=== PATIENT | female | born 2000 | race Asian ===

== ENCOUNTER 2019-08-30 06:50 | Emergency (ER) | payer OTHER ==
--- NOTE | 2019-08-30 07:40 | ED ---
Abdominal Pain/Female - HPI Summary HPI Summary: 18 year old F presenting to [facility] accompanied by female first sampler complains of left abd pain since a month ago, worse since two days ago. Pt reports emesis and chills since yesterday, constipation, more frequent urination, and 15 lbs of weight loss since last month. Patient states that when she is able to have a bowel movement she produces small amounts of diarrhea. Denies other urinary Sx and any noticeable hair loss. Hx of GERD is noted. Patient had an endoscopy in [place] last month which is reported to have been normal with exception of GERD. She also states that she was bitten by a cat in [facility] for which she is currently on rabies medication. SHx of no smoking, no alcohol, and no drugs. The patient rates the pain 5/10 in severity. Symptoms aggravated by nothing. Symptoms alleviated by nothing. Use of Miralax had no benefit. Medications reviewed. Allergies noted. - History of Current Complaint Chief Complaint: EDAbdPain Stated Complaint: ABD PAIN PER PT Time Seen by Provider: 08/30/19 07:08 Hx Obtained From: Patient Hx Last Menstrual Period: 08/22/2019 ?: No Onset/Duration: Lasting Weeks, Still Present Timing: Constant Severity Currently: Moderate Pain Intensity: 5 Pain Scale Used: 0-10 Numeric Location: Discrete At: LUQ, Discrete At: LLQ Aggravating Factor(s): Nothing Alleviating Factor(s): Nothing - Marilax doesn't help Associated Signs and Symptoms: Positive: Constipation, Urinary Symptoms - increased frequency of urination, no other Sx, Nausea, Vomiting, Diarrhea. Negative: Fever Allergies/Adverse Reactions: Allergies Allergy/AdvReac Type Severity Reaction Status Date / Time No Known Allergies Allergy Verified 08/30/19 06:52 Home Medications: Home Medications Esomeprazole(NF) [NEXium(NF)] 20 mg PO BID 08/30/19 [History Confirmed 08/30/19] PMH/Surg Hx/FS Hx/Imm Hx Previously Healthy: Yes GI History: Reports: Hx Gastroesophageal Reflux Disease Sensory History: Denies: Hx Legally Blind - Surgical History Surgical History: None Infectious Disease History: No Infectious Disease History: Reports: Traveled Outside the [place] in Last 30 Days - [place] and [facility] [place][note 3] - Family History Known Family History: Positive: Cardiac Disease, Hypertension - Social History Alcohol Use: None Substance Use Type: Reports: None Smoking Status (MU): Never Smoked Tobacco Review of Systems Constitutional: Negative - no noticeable hair loss Positive: Other - 15 lbs lost since last month . Negative: Fever Positive: Abdominal Pain - Left side for 2 months, Vomiting - 3-4 times since yesterday 08/29/2019, Diarrhea, Nausea - not present currently , Other - Constipation Positive: frequency - increased frequency of urination All Other Systems Reviewed And Are Negative: Yes Physical Exam - Summary Physical Exam Summary: Constitutional: Well-developed, Well-nourished, Alert. (-) Distressed Skin: Warm, Dry HENT: Normocephalic; Atraumatic Eyes: Conjunctiva normal Neck: Musculoskeletal ROM normal neck. (-) JVD, (-) Stridor, (-) Tracheal deviation Cardio: Rhythm regular, rate normal, Heart sounds normal; Intact distal pulses; Radial pulses are 2+ and symmetric. (-) Murmur Pulmonary/Chest wall: Effort normal. (-) Respiratory distress, (-) Wheezes, (-) Rales Abd: mild LLQ tenderness, no rebound or guarding, no distension Musculoskeletal: (-) Edema Lymph: (-) Cervical adenopathy Neuro: Alert, Oriented x3 Psych: Mood and affect Normal Triage Information Reviewed: Yes Vital Signs On Initial Exam: Initial Vitals Temp Pulse Resp BP Pulse Ox 97.9 F 88 18 121/84 98 08/30/19 06:50 08/30/19 06:50 08/30/19 06:50 08/30/19 06:50 08/30/19 06:50 Vital Signs Reviewed: Yes Procedures - Sedation Patient Received Moderate/Deep Sedation with Procedure: No Diagnostics - Vital Signs Vital Signs Temp Pulse Resp BP Pulse Ox 08/30/19 06:50 97.9 F 88 18 121/84 98 - Laboratory Result Diagrams: 08/30/19 07:56 08/30/19 07:56 Lab Statement: Any lab studies that have been ordered have been reviewed, and results considered in the medical decision making process. - Radiology ABDOMINAL X-RAY Radiology Interpretation Completed By: Radiologist Summary of Radiographic Findings: IMPRESSION: NO EVIDENCE FOR OBSTRUCTION. ED Physician has reviewed this report. Re-Evaluation - Re-Evaluation 9:03 Re-Evaluation Time: 09:03 Change: Improved Comment: Pt reports feeling better after Bentyl. Abdominal Pain Fem Course/Dx - Course Course Of Treatment: Patient is here with chronic left lower quadrant pain for the past month. Patient's symptoms to get worse 2 days ago. Patient states she feels constipated when she goes has small episodes of diarrhea. Patient has some nausea with this as well which she describes as reflux. Patient had an EGD done in [place] the past couple of weeks which was negative for any acute illness. Patient isn't taking as reflux medicine with little relief. Patient was tender on exam but only in her left lower quadrant. Patient had an x-ray which showed no obvious stool Birden. Patient blood or performed which is grossly unremarkable. Patient was given Bentyl with near resolution of her symptoms. Given patient's symptomology, timeframe, and improvement with medication, CT scan was not performed. I do not believe this was ovarian in nature as her pain was more superior than her ovary and she had GI symptoms to company. - Diagnoses Provider Diagnoses: LLQ pain Discharge ED - Sign-Out/Discharge Documenting (check all that apply): Patient Departure - discharge - Discharge Plan Condition: Stable Disposition: HOME Prescriptions: Dicyclomine CAP* [Bentyl CAP*] 10 mg PO TID PRN #20 cap PRN Reason: abdominal cramping Patient Education Materials: Abdominal Pain (ED) Referrals: [facility] - Valdemar CORREA [Primary Care Provider] - Carla Vera MD [Medical Doctor] - Additional Instructions: Follow up with within the next 3 days. Continue medications at home and start new medications for cramping. Come back for severe pain, unexpected vaginal bleeding, or any other concerning symptoms. - Billing Disposition and Condition Condition: STABLE Disposition: Home - Attestation Statements Document Initiated by Kun: Yes Documenting Scribe: NOEMI WATSON Provider For Whom Kun is Documenting (Include Credential): TAMIKA DAUGHERTY MD Scribe Attestation: NOEMI Khan scribed for TAMIKA DAUGHERTY MD on 08/31/19 at 0720. Scribe Documentation Reviewed: Yes Provider Attestation: The documentation as recorded by the NOEMI berman accurately reflects the service I personally performed and the decisions made by me, TAMIKA DAUGHERTY MD Status of Scribe Document: Viewed
[2019-08-30 08:01] LABS: ABS Lymphocytes 1.9 10^3/ul (1.0-4.8); ABS Monocytes 0.3 10^3/ul (0-0.8); ABS Neutrophils 4.6 10^3/ul (1.5-7.7); Eosinophil % 0.4 %; Hematocrit 37 % (35-47); Hemoglobin 12.7 g/dL (12.0-16.0); Lymphocyte % 27.2 %; Mean Corpuscular HGB Conc 34 g/dL (31-36); Mean Corpuscular Hemoglobin 30 pg (27-31); Mean Corpuscular Volume 87 fL (80-97); Mean Platelet Volume 9.8 fL (7.4-10.4); Platelet Count 265 10^3/uL (150-450); Red Blood Count 4.25 10^6 /uL (3.70-4.87); Red Cell Distribution Width 13 % (10-15); White Blood Count 6.8 10^3/uL (3.5-10.8)
[2019-08-30] MEDS ORDERED: Dicyclomine CAP* 10 MG PO ONE (08:10)
[2019-08-30 08:21] LABS: ALT 14 U/L (7-52); AST 14 U/L (13-39); Albumin 4.6 g/dL (3.2-5.2); Albumin/Globulin Ratio 1.4 (1-3); Alkaline Phosphatase 42 U/L (34-104); Anion Gap 7 mmol/L (2-11); BUN/Creatinine Ratio 15.4 (8-20); Blood Urea Nitrogen 12 mg/dL (6-24); CO2 Carbon Dioxide 26 mmol/L (22-32); Calcium 9.8 mg/dL (8.6-10.3); Chloride 106 mmol/L (101-111); EGFR African American 113.9 (>60); EGFR Non-African American 94.2 (>60); Globulin 3.3 g/dL (2-4); Glucose 96 mg/dL (70-100); Potassium 4.2 mmol/L (3.5-5.0); Sodium 139 mmol/L (135-145); Total Protein 7.9 g/dL (6.4-8.9)
[2019-08-30 08:27] LABS: HCG Pregnancy < 0.60 mIU/mL
[2019-08-30 09:04] LABS: Free T4 1.08 ng/dL (0.61-1.12)
[2019-08-30 10:14] VITALS: BP 121/86
== END 2019-08-30 10:14 | disposition home or self-care (01) ==
LOC: ED 06:50
DX: R10.32 Left lower quadrant pain (principal); R35.0 Frequency of micturition; R11.10 Vomiting, unspecified; R68.83 Chills (without fever); R63.4 Abnormal weight loss; K21.9 Gastro-esophageal reflux disease without esophagitis
CPT/HCPCS: 36415; 74018; 80053; 84439; 84443; 84702; 85025; 99282; A9270-GY

== ENCOUNTER 2019-09-09 12:07 | Emergency (ER) | payer OTHER ==
[2019-09-09 13:07] LABS: ABS Lymphocytes 1.5 10^3/ul (1.0-4.8); ABS Monocytes 0.3 10^3/ul (0-0.8); ABS Neutrophils 4.2 10^3/ul (1.5-7.7); Eosinophil % 0.3 %; Hematocrit 38 % (35-47); Hemoglobin 12.8 g/dL (12.0-16.0); Lymphocyte % 25.3 %; Mean Corpuscular HGB Conc 34 g/dL (31-36); Mean Corpuscular Hemoglobin 29 pg (27-31); Mean Corpuscular Volume 87 fL (80-97); Mean Platelet Volume 10.7 fL (7.4-10.4); Platelet Count 268 10^3/uL (150-450); Red Blood Count 4.36 10^6 /uL (3.70-4.87); Red Cell Distribution Width 13 % (10-15); White Blood Count 6.1 10^3/uL (3.5-10.8)
[2019-09-09 13:13] LABS: ALT 9 U/L (7-52); AST 12 U/L (13-39); Albumin 4.6 g/dL (3.2-5.2); Albumin/Globulin Ratio 1.4 (1-3); Alkaline Phosphatase 41 U/L (34-104); Anion Gap 10 mmol/L (2-11); BUN/Creatinine Ratio 11.8 (8-20); Blood Urea Nitrogen 8 mg/dL (6-24); C Reactive Protein < 1.00 mg/L (<8.01); CO2 Carbon Dioxide 25 mmol/L (22-32); Calcium 9.7 mg/dL (8.6-10.3); Chloride 104 mmol/L (101-111); EGFR African American 133.5 (>60); EGFR Non-African American 110.3 (>60); Globulin 3.2 g/dL (2-4); Glucose 93 mg/dL (70-100); Magnesium 1.9 mg/dL (1.9-2.7); Potassium 3.6 mmol/L (3.5-5.0); Sodium 139 mmol/L (135-145); Total Protein 7.8 g/dL (6.4-8.9)
[2019-09-09 13:20] LABS: HCG Pregnancy < 0.60 mIU/mL
--- NOTE | 2019-09-09 13:36 | ED ---
Abdominal Pain/Female - HPI Summary HPI Summary: This patient is a 18 year old female presenting to [facility] with a chief complaint of abdominal pain since yesterday evening. She states it has gradually worsened since. She reports dizziness and nausea. Laying down alleviates the pain. Pt recently traveled to [place], and [place]. She reports vomiting a couple days ago. She states she has had intermittent GI problems for around a month now. She states no prior surgery to her abdomen. LNMP was 2 weeks ago. - History of Current Complaint Chief Complaint: EDAbdPain Stated Complaint: ABD PAIN PER PT Time Seen by Provider: 09/09/19 13:28 Hx Obtained From: Patient Hx Last Menstrual Period: 08/22/2019 Onset/Duration: Lasting Days, Lasting Weeks Pain Intensity: 6 Pain Scale Used: 0-10 Numeric Location: Diffuse Allergies/Adverse Reactions: Allergies Allergy/AdvReac Type Severity Reaction Status Date / Time No Known Allergies Allergy Verified 09/09/19 12:12 PMH/Surg Hx/FS Hx/Imm Hx GI History: Reports: Hx Gastroesophageal Reflux Disease Sensory History: Denies: Hx Legally Blind Opthamlomology History: Denies: Hx Legally Blind Infectious Disease History: No Infectious Disease History: Reports: Traveled Outside the [place] in Last 30 Days - [place] - Family History Known Family History: Positive: Cardiac Disease, Hypertension - Social History Alcohol Use: None Substance Use Type: Reports: None Smoking Status (MU): Never Smoked Tobacco Review of Systems Negative: Fever Positive: Abdominal Pain, Vomiting, Nausea Neurological: Other - Dizziness All Other Systems Reviewed And Are Negative: Yes Physical Exam - Summary Physical Exam Summary: Constitutional: Well-developed, Well-nourished, Alert. (-) Distressed Skin: Warm, Dry HENT: Normocephalic; Atraumatic Eyes: Conjunctiva normal Neck: Musculoskeletal ROM normal neck. (-) JVD, (-) Stridor, (-) Tracheal deviation Cardio: Rhythm regular, rate normal, Heart sounds normal; Intact distal pulses; Radial pulses are 2+ and symmetric. (-) Murmur Pulmonary/Chest wall: Effort normal. (-) Respiratory distress, (-) Wheezes, (-) Rales Abd: Soft, (-) tenderness, (-) Distension, (-) Guarding, (-) Rebound Musculoskeletal: (-) Edema Lymph: (-) Cervical adenopathy Neuro: Alert, Oriented x3 Psych: Mood and affect Normal Triage Information Reviewed: Yes Vital Signs On Initial Exam: Initial Vitals Temp Pulse Resp BP Pulse Ox 98.7 F 88 18 152/85 100 09/09/19 12:10 09/09/19 12:10 09/09/19 12:10 09/09/19 12:10 09/09/19 12:10 Vital Signs Reviewed: Yes Procedures - Sedation Patient Received Moderate/Deep Sedation with Procedure: No Diagnostics - Vital Signs Vital Signs Temp Pulse Resp BP Pulse Ox 09/09/19 12:10 98.7 F 88 18 152/85 100 - Laboratory Lab Results: Lab Results 09/09/19 09/09/19 09/09/19 Range/Units 12:47 12:47 12:47 WBC 6.1 (3.5-10.8) 10^3/uL RBC 4.36 (3.70-4.87) 10^6 /uL Hgb 12.8 (12.0-16.0) g/dL Hct 38 (35-47) % MCV 87 (80-97) fL MCH 29 (27-31) pg MCHC 34 (31-36) g/dL RDW 13 (10-15) % Plt Count 268 (150-450) 10^3/uL MPV 10.7 H (7.4-10.4) fL Neut % (Auto) 68.8 % Lymph % (Auto) 25.3 % [place] % (Auto) 5.0 % Eos % (Auto) 0.3 % Baso % (Auto) 0.6 % Absolute Neuts (auto) 4.2 (1.5-7.7) 10^3/ul Absolute Lymphs (auto) 1.5 (1.0-4.8) 10^3/ul Absolute Monos (auto) 0.3 (0-0.8) 10^3/ul Absolute Eos (auto) 0.0 (0-0.6) 10^3/ul Absolute Basos (auto) 0.0 (0-0.2) 10^3/ul Absolute Nucleated RBC 0.0 10^3/ul Nucleated RBC % 0.0 Sodium 139 (135-145) mmol/L Potassium 3.6 (3.5-5.0) mmol/L Chloride 104 (101-111) mmol/L Carbon Dioxide 25 (22-32) mmol/L Anion Gap 10 (2-11) mmol/L BUN 8 (6-24) mg/dL Creatinine 0.68 (0.51-0.95) mg/dL Est GFR ( Amer) 133.5 (>60) Est GFR (Non-Af Amer) 110.3 (>60) BUN/Creatinine Ratio 11.8 (8-20) Glucose 93 (70-100) mg/dL Lactic Acid 1.1 (0.5-2.0) mmol/L Calcium 9.7 (8.6-10.3) mg/dL Magnesium 1.9 (1.9-2.7) mg/dL Total Bilirubin 0.90 (0.2-1.0) mg/dL AST 12 L (13-39) U/L ALT 9 (7-52) U/L Alkaline Phosphatase 41 (34-104) U/L C-Reactive Protein < 1.00 (<8.01) mg/L Total Protein 7.8 (6.4-8.9) g/dL Albumin 4.6 (3.2-5.2) g/dL Globulin 3.2 (2-4) g/dL Albumin/Globulin Ratio 1.4 (1-3) Lipase 16 (11.0-82.0) U/L Beta HCG, Quant < 0.60 mIU/mL Result Diagrams: 09/09/19 12:47 09/09/19 12:47 Lab Statement: Any lab studies that have been ordered have been reviewed, and results considered in the medical decision making process. - Ultrasound No standard instances Ultrasound Interpretation Completed By: Radiologist Summary of Ultrasound Findings: Pelvic US: 1. Ovarian doppler signal detected bilaterally. 2. Trace free fluid. ED Provider has reviewed this report. Abdominal Pain Fem Course/Dx - Course Course Of Treatment: This patient is a 18 year old female presenting to [facility] with a chief complaint of abdominal pain since yesterday evening. Pelvic US revealed trace free fluid. Labs were unremarkable except MPV 10.7 H, AST 12 L, Urine Ketones 2+ A, Ur specific gravity 1.009 L. Plan for discharge was discussed with the patient and she was agreeable with this plan. - Diagnoses Provider Diagnoses: Abdominal pain Discharge ED - Sign-Out/Discharge Documenting (check all that apply): Patient Departure - Discharge - Discharge Plan Condition: Stable Disposition: HOME Patient Education Materials: Abdominal Pain (ED) Referrals: [facility] - Valdemar CORREA [Primary Care Provider] - 2 Days Additional Instructions: Return to ED with new or worsening symptoms. - Billing Disposition and Condition Condition: STABLE Disposition: Home - Attestation Statements Document Initiated by Scribe: Yes Documenting Scribe: Kurt Mckeon Provider For Whom Scribe is Documenting (Include Credential): Angel Jeffers DO Scribe Attestation: Kurt Khan scribed for Angel Jeffers DO on 09/09/19 at 2012. Scribe Documentation Reviewed: Yes Provider Attestation: The documentation as recorded by the Kurt berman accurately reflects the service I personally performed and the decisions made by Angel galvez DO Status of Scribe Document: Viewed
[2019-09-09] MEDS ORDERED: Ketorolac INJ* 30 MG/ML 1 ML VIAL IV PUSH ONE (13:40)
[2019-09-09] MEDS ORDERED: NS 0.9% 1000 ML** 1,000 ML IV ONE (13:40)
[2019-09-09 16:27] LABS: Urine Appearance Cloudy; Urine Bilirubin Negative (Negative); Urine Blood Negative (Negative); Urine Color Yellow; Urine Glucose Negative (Negative); Urine Ketones 2+ (Negative); Urine Nitrite Negative (Negative); Urine Protein Negative (Negative); Urine Specific Gravity 1.009 (1.010-1.030); Urine Urobilinogen Negative (Negative)
[2019-09-09] MEDS ORDERED: Iohexol 300* (CONTRAST) 10 ML SDV IV ONE (17:00)
[2019-09-09 17:26] VITALS: BP 114/71
== END 2019-09-09 17:24 | disposition home or self-care (01) ==
LOC: ED 12:07
DX: R10.9 Unspecified abdominal pain (principal); K21.9 Gastro-esophageal reflux disease without esophagitis
CPT/HCPCS: 36415; 76856; 80053; 81003; 83605; 83690; 83735; 84702; 85025; 86140; 96361; 96374; 99282; J1885

== ENCOUNTER 2019-09-09 21:59 | Emergency (ER) | payer OTHER ==
--- OUTSIDE RECORDS SUMMARY | 2019-09-09 22:36 | XMS REPORT | Continuity of Care Document ---
:2000 External Reference #:[id number] Author Name Ivette Manzano PA-C Address [facility] [place] [address] Problems Active Problems Provider Date Constipation Ivette Manzano PA-C Onset: 09/01/2019 Generalized abdominal pain Ivette Manzano PA-C Onset: 09/01/2019 Gastroesophageal reflux disease Ivette Manzano PA-C Onset: 09/01/2019 Social History Type Date Description Comments Sex Unknown Tobacco Use Start: Unknown Patient has never smoked Smoking Status Reviewed: 09/01/19 Patient has never smoked Allergies, Adverse Reactions, Alerts Description No Known Drug Allergies Medications Active Medications SIG Qnty Indications Ordering Provider Date Nexium 1 by mouth bid Unknown 20mg Capsules DR Dumont Description No Information Available Vital Signs Date Vital Result Comment 09/01/2019 9:10am Height 67 inches 5'7" Weight 121.00 lb BP Systolic 163 mmHg BP Diastolic 90 mmHg Heart Rate 97 /min BMI (Body Mass Index) 18.9 kg/m2 Results Description No Information Available Procedures Description No Information Available Medical Devices Description No Information Available Encounters Description No Information Available Assessments Date Code Description Provider 09/01/2019 K21.9 Gastro-esophageal reflux disease without Ivette Manzano PA-C esophagitis 09/01/2019 R10.84 Generalized abdominal pain Ivette Manzano PA-C 09/01/2019 K59.00 Constipation, unspecified Ivette Manzano PA-C Plan of Treatment Future Appointment(s):09/11/2019 2:45 pm - Ivette Manz[facility]-C at [facility]09/01/2019 - Ivette L. Swanstrom, PA- CK21.9 Gastro-esophageal reflux disease without vsjtkcruxtxB40.84 Generalized abdominal painK59.00 Constipation, unspecified Functional Status Description No Information Available Mental Status Description No Information Available Referrals Description No Information Available
[2019-09-09] MEDS ORDERED: Famotidine IV* 10 MG/ML 2 ML (20 mg) IV ONE (23:55)
[2019-09-09] MEDS ORDERED: Ketorolac INJ* 15 MG/ML 1 ML VIAL IV ONE (23:55)
[2019-09-09] MEDS ORDERED: NS 0.9% 1000 ML** 1,000 ML IV ONE (23:55)
[2019-09-09] MEDS ORDERED: Ondansetron INJ* 2 MG/ML VIAL IV ONE (23:55)
[2019-09-09] MEDS ORDERED: Pantoprazole IV* 40 MG IV ONE (23:58)
[2019-09-10 00:28] LABS: ABS Eosinophils 0.1 10^3/ul (0-0.6); ABS Lymphocytes 2.1 10^3/ul (1.0-4.8); ABS Monocytes 0.6 10^3/ul (0-0.8); ABS Neutrophils 4.7 10^3/ul (1.5-7.7); Eosinophil % 1.6 %; Hematocrit 38 % (35-47); Hemoglobin 12.4 g/dL (12.0-16.0); Lymphocyte % 27.8 %; Mean Corpuscular HGB Conc 33 g/dL (31-36); Mean Corpuscular Hemoglobin 29 pg (27-31); Mean Corpuscular Volume 89 fL (80-97); Mean Platelet Volume 10.8 fL (7.4-10.4); Platelet Count 245 10^3/uL (150-450); Red Blood Count 4.24 10^6 /uL (3.70-4.87); Red Cell Distribution Width 13 % (10-15); White Blood Count 7.6 10^3/uL (3.5-10.8)
[2019-09-10 00:47] LABS: ALT 9 U/L (7-52); AST 10 U/L (13-39); Albumin 4.3 g/dL (3.2-5.2); Albumin/Globulin Ratio 1.5 (1-3); Alkaline Phosphatase 37 U/L (34-104); Amylase 34 U/L (29-103); Anion Gap 9 mmol/L (2-11); BUN/Creatinine Ratio 13.9 (8-20); Blood Urea Nitrogen 10 mg/dL (6-24); C Reactive Protein < 1.00 mg/L (<8.01); CO2 Carbon Dioxide 25 mmol/L (22-32); Calcium 9.3 mg/dL (8.6-10.3); Chloride 106 mmol/L (101-111); EGFR Non-African American 103.3 (>60); Globulin 2.9 g/dL (2-4); Glucose 83 mg/dL (70-100); Sodium 140 mmol/L (135-145); Total Protein 7.2 g/dL (6.4-8.9)
[2019-09-10 00:53] LABS: HCG Pregnancy < 0.60 mIU/mL
[2019-09-10 00:55] LABS: INR 1.23 (0.82-1.09)
[2019-09-10 00:56] LABS: Urine Appearance Clear; Urine Bilirubin Negative (Negative); Urine Blood Negative (Negative); Urine Color Yellow; Urine Glucose Negative (Negative); Urine Ketones 2+ (Negative); Urine Nitrite Negative (Negative); Urine Protein Negative (Negative); Urine Specific Gravity 1.021 (1.010-1.030); Urine Urobilinogen Negative (Negative)
--- NOTE | 2019-09-10 01:06 | ED ---
Abdominal Pain/Female - HPI Summary HPI Summary: This patient is a 18 year old F presenting to [facility] accompanied by friend with a chief complaint of worsening abdominal pain since last night after dinner. Pt did not eat anything all day until dinner. After eating bread at dinner time her abdominal pain became very severe. Pt has PMHx of digestion issues and took nexium. Pt has had an upper endoscopy in [place]. Pt has no abdominal SHx. Pt had her last period on 08/22/18. Patient reports nausea, diarrhea, and constipation. Patient denies vomiting, and fever. Per triage, the patient rates the pain 7/10 in severity. - History of Current Complaint Chief Complaint: EDAbdPain Stated Complaint: STOMACH PAIN PER PT Time Seen by Provider: 09/09/19 23:50 Hx Obtained From: Patient Hx Last Menstrual Period: 08/22/2019 ?: No Onset/Duration: Gradual Onset, Lasting Hours Timing: Constant Severity Initially: Moderate Severity Currently: Severe Pain Intensity: 7 Pain Scale Used: 0-10 Numeric Location: Diffuse Aggravating Factor(s): Food Alleviating Factor(s): Nothing Associated Signs and Symptoms: Positive: Decreased Appetite, Nausea, Diarrhea. Negative: Vomiting Allergies/Adverse Reactions: Allergies Allergy/AdvReac Type Severity Reaction Status Date / Time No Known Allergies Allergy Verified 09/10/19 00:17 PMH/Surg Hx/FS Hx/Imm Hx Endocrine/Hematology History: Denies: Hx Diabetes Cardiovascular History: Denies: Hx Hypertension GI History: Reports: Hx Gastroesophageal Reflux Disease Sensory History: Denies: Hx Legally Blind Opthamlomology History: Denies: Hx Legally Blind - Surgical History Surgical History: None Infectious Disease History: No Infectious Disease History: Reports: Traveled Outside the [place] in Last 30 Days - [place] and [place] - Family History Known Family History: Positive: Cardiac Disease, Hypertension - Social History Occupation: Student Alcohol Use: None Substance Use Type: Reports: None Smoking Status (MU): Never Smoked Tobacco - Additional Comments History Additional Comments: PMHx GERD Home Medications Medication Instructions Recorded Confirmed Type Dicyclomine CAP* [Bentyl CAP*] 10 mg PO TID PRN #20 cap 08/30/19 09/10/19 Rx Esomeprazole(NF) [NEXium(NF)] 20 mg PO BID 08/30/19 09/10/19 History Review of Systems Negative: Fever Positive: Diarrhea, Nausea, Other - Constipation. Negative: Vomiting All Other Systems Reviewed And Are Negative: Yes Physical Exam - Summary Physical Exam Summary: General: Well-developed, Well-nourished female. No acute distress. HEENT: Normocephalic, Atraumatic. Eyes: Conjuctiva normal, PERRL. Oropharynx: Clear, mucous membranes moist, (-) exudates. Neck: Soft, FROM, (-) lymphadenopathy, (-) thyromegaly, (-) JVD. Cardiovascular: Normal sinus rhythm, (-) murmur. Lungs: Clear to auscultation bilaterally (-) wheezes, (-) rales, (-) rhonchi. Abdomen: Soft, non-tender, non-distended, (-) organomegaly, normal bowel sounds. Back: (-) CVA tenderness Extremities: No edema. Skin: Warm, dry, (-) rash. Neuro: Alert and oriented x3, moves all extremities equally. No ataxia. No gait disturbance. No sensory deficit. No amnesia. Psychiatric: Mildly anxious appearing, affect normal. Triage Information Reviewed: Yes Vital Signs On Initial Exam: Initial Vitals Temp Pulse Resp BP Pulse Ox 99 F 66 18 123/78 99 09/09/19 22:11 09/09/19 22:11 09/09/19 22:11 09/09/19 22:11 09/09/19 22:11 Vital Signs Reviewed: Yes Procedures - Sedation Patient Received Moderate/Deep Sedation with Procedure: No Diagnostics - Vital Signs Vital Signs Temp Pulse Resp BP Pulse Ox 09/09/19 22:11 99 F 66 18 123/78 99 - Laboratory Lab Results: Lab Results 09/10/19 09/10/19 09/10/19 Range/Units 00:15 00:15 00:16 WBC 7.6 (3.5-10.8) 10^3/uL RBC 4.24 (3.70-4.87) 10^6 /uL Hgb 12.4 (12.0-16.0) g/dL Hct 38 (35-47) % MCV 89 (80-97) fL MCH 29 (27-31) pg MCHC 33 (31-36) g/dL RDW 13 (10-15) % Plt Count 245 (150-450) 10^3/uL MPV 10.8 H (7.4-10.4) fL Neut % (Auto) 61.6 % Lymph % (Auto) 27.8 % Greer % (Auto) 8.5 % Eos % (Auto) 1.6 % Baso % (Auto) 0.5 % Absolute Neuts (auto) 4.7 (1.5-7.7) 10^3/ul Absolute Lymphs (auto) 2.1 (1.0-4.8) 10^3/ul Absolute Monos (auto) 0.6 (0-0.8) 10^3/ul Absolute Eos (auto) 0.1 (0-0.6) 10^3/ul Absolute Basos (auto) 0.0 (0-0.2) 10^3/ul Absolute Nucleated RBC 0.0 10^3/ul Nucleated RBC % 0.0 INR (Anticoag Therapy) 1.23 H (0.82-1.09) Sodium 140 (135-145) mmol/L Potassium 3.0 L (3.5-5.0) mmol/L Chloride 106 (101-111) mmol/L Carbon Dioxide 25 (22-32) mmol/L Anion Gap 9 (2-11) mmol/L BUN 10 (6-24) mg/dL Creatinine 0.72 (0.51-0.95) mg/dL Est GFR ( Amer) 125.0 (>60) Est GFR (Non-Af Amer) 103.3 (>60) BUN/Creatinine Ratio 13.9 (8-20) Glucose 83 (70-100) mg/dL Lactic Acid (0.5-2.0) mmol/L Calcium 9.3 (8.6-10.3) mg/dL Total Bilirubin 0.80 (0.2-1.0) mg/dL AST 10 L (13-39) U/L ALT 9 (7-52) U/L Alkaline Phosphatase 37 (34-104) U/L C-Reactive Protein < 1.00 (<8.01) mg/L Total Protein 7.2 (6.4-8.9) g/dL Albumin 4.3 (3.2-5.2) g/dL Globulin 2.9 (2-4) g/dL Albumin/Globulin Ratio 1.5 (1-3) Amylase 34 (29-103) U/L Lipase 22 (11.0-82.0) U/L Beta HCG, Quant < 0.60 mIU/mL Urine Color Urine Appearance Urine pH (5-9) Ur Specific [place] (1.010-1.030) Urine Protein (Negative) Urine Ketones (Negative) Urine Blood (Negative) Urine Nitrate (Negative) Urine Bilirubin (Negative) Urine Urobilinogen (Negative) Ur Leukocyte Esterase (Negative) Urine Glucose (Negative) 09/10/19 09/10/19 Range/Units 00:16 00:20 WBC (3.5-10.8) 10^3/uL RBC (3.70-4.87) 10^6 /uL Hgb (12.0-16.0) g/dL Hct (35-47) % MCV (80-97) fL MCH (27-31) pg MCHC (31-36) g/dL RDW (10-15) % Plt Count (150-450) 10^3/uL MPV (7.4-10.4) fL Neut % (Auto) % Lymph % (Auto) % Gre[place] % (Auto) % Eos % (Auto) % Baso % (Auto) % Absolute Neuts (auto) (1.5-7.7) 10^3/ul Absolute Lymphs (auto) (1.0-4.8) 10^3/ul Absolute Monos (auto) (0-0.8) 10^3/ul Absolute Eos (auto) (0-0.6) 10^3/ul Absolute Basos (auto) (0-0.2) 10^3/ul Absolute Nucleated RBC 10^3/ul Nucleated RBC % INR (Anticoag Therapy) (0.82-1.09) Sodium (135-145) mmol/L Potassium (3.5-5.0) mmol/L Chloride (101-111) mmol/L Carbon Dioxide (22-32) mmol/L Anion Gap (2-11) mmol/L BUN (6-24) mg/dL Creatinine (0.51-0.95) mg/dL Est GFR ( Amer) (>60) Est GFR (Non-Af Amer) (>60) BUN/Creatinine Ratio (8-20) Glucose (70-100) mg/dL Lactic Acid 0.6 (0.5-2.0) mmol/L Calcium (8.6-10.3) mg/dL Total Bilirubin (0.2-1.0) mg/dL AST (13-39) U/L ALT (7-52) U/L Alkaline Phosphatase (34-104) U/L C-Reactive Protein (<8.01) mg/L Total Protein (6.4-8.9) g/dL Albumin (3.2-5.2) g/dL Globulin (2-4) g/dL Albumin/Globulin Ratio (1-3) Amylase (29-103) U/L Lipase (11.0-82.0) U/L Beta HCG, Quant mIU/mL Urine Color Yellow Urine Appearance Clear Urine pH 6.0 (5-9) Ur Specific [place] 1.021 (1.010-1.030) Urine Protein Negative (Negative) Urine Ketones 2+ A (Negative) Urine Blood Negative (Negative) Urine Nitrate Negative (Negative) Urine Bilirubin Negative (Negative) Urine Urobilinogen Negative (Negative) Ur Leukocyte Esterase Negative (Negative) Urine Glucose Negative (Negative) Result Diagrams: 09/10/19 00:15 09/10/19 00:16 Lab Statement: Any lab studies that have been ordered have been reviewed, and results considered in the medical decision making process. Re-Evaluation - Re-Evaluation First Eval Re-Evaluation Time: 01:30 Comment: Pt does not want a CT scan due to the radiation. Abdominal Pain Fem Course/Dx - Course Course Of Treatment: 18-year-old female presenting with abdominal pain. Patient states that she actually has been having trouble with her stomach for about a month now. Has been having abdominal pain. She states she was recently in [place] for school break. That time she had an upper endoscopy done. Was placed on medications which she does not think is helping. She was seen here earlier today with the same symptoms. Patient was feeling better and was discharged to home. She states while at home tonight the pain worsened and she returned. Patient states after arrival her pain began to dissipate. She states it's much better at this time. She refuses bloodwork. Refuses CAT scan. Patient states she will follow up for any worsening symptoms. In ED pt received Pepcid IV, fluids, Toradol, Zofran, and Protonix IV. - Diagnoses Differential Diagnosis: Positive: Appendicitis Provider Diagnoses: Abdominal pain Discharge ED - Sign-Out/Discharge Documenting (check all that apply): Patient Departure - Dsicharge - Discharge Plan Condition: Stable Disposition: HOME Patient Education Materials: Abdominal Pain (ED) Referrals: [facility] - Valdemar CORREA [Primary Care Provider] - 3 Days Additional Instructions: Please follow up with your primary care physician within three days. Please return to ED for any new or worsening symptoms. - Billing Disposition and Condition Condition: STABLE Disposition: Home - Attestation Statements Document Initiated by Scribe: Yes Documenting Scribe: Yolanda Flaherty Provider For Whom Kun is Documenting (Include Credential): Dr. Heidi Guevara MD Scribe Attestation: Yolanda Khan scribed for Dr. Heidi uGevara MD on 09/10/19 at 0608. Scribe Documentation Reviewed: Yes Provider Attestation: The documentation as recorded by the Yolanda berman accurately reflects the service I personally performed and the decisions made by me, Dr. Heidi Guevara MD Status of Scribe Document: Viewed
[2019-09-10 01:42] VITALS: BP 121/72
== END 2019-09-10 01:40 | disposition home or self-care (01) ==
LOC: ED 21:59
DX: R10.9 Unspecified abdominal pain (principal); R19.7 Diarrhea, unspecified; R11.0 Nausea; K21.9 Gastro-esophageal reflux disease without esophagitis; Z79.891 Long term (current) use of opiate analgesic
CPT/HCPCS: 36415; 80053; 81003; 82150; 83605; 83690; 84702; 85025; 85610; 86140; 87040; 99282; J1885; J2405